=== PATIENT | male | born 1995 | race Caucasian/White ===

== ENCOUNTER → 2018-05-23 | Outpatient (CLI) | payer OTHER ==
--- NOTE | 2018-05-23 15:21 | CT ---
EXAMINATION TYPE: CT ankle RT wo con DATE OF EXAM: 05/23/2018 COMPARISON: NONE HISTORY: 23-year-old male injury right ankle, crushed with log TECHNIQUE: Contiguous axial scanning of the right ankle without IV contrast. Coronal and sagittal rec onstructions performed. 3-D reconstructions generated on a dedicated independent workstation. CT DLP: 238 mGycm Automated exposure control for dose reduction was used. FINDINGS: There is a comminuted oblique fracture through the base of the medial malleolus with mild displacemen t of fracture fragments. Associated soft tissue swelling and hematoma. Fracture fragments measure up to 1.7 and 1.1 cm. The posterior tibial tendon is displaced anteriorly and entrapped between the 2 comminuted fracture f ragments, refer to axial image 51 and sagittal image 24 as well as coronal image 15. Medial sided sof t tissue swelling. Additional curvilinear bone fragment measuring 9 x 6 mm just adjacent to the lateral talar process at the expected ATFL attachment site. Tiny density measuring 3 mm along the dorsal talar head/neck could represent a tiny capsular avulsion fracture. No intra-articular loose bodies are seen. Talar dome appears intact. Subtalar joint is aligned. Prese rved fat signal within the sinus Tarsi. Achilles tendon intact. IMPRESSION: 1. COMMINUTED FRACTURE INVOLVING THE MEDIAL MALLEOLUS WITH FRAGMENTS MEASURING 1.7 AND 1.1 CM. 2. OF NOTE, THE POSTERIOR TIBIAL TENDON IS DISPLACED ANTERIORLY AND ENTRAPPED BETWEEN THE 2 COMMINUT ED FRAGMENTS. 3. 9 X 6 MM AVULSION FRACTURE FRAGMENT AT THE TALAR ATTACHMENT OF THE ATFL. 4. TINY 3 MM DENSITY ALONG THE DORSAL TALAR HEAD/NECK COULD REPRESENT A TINY CAPSULAR AVULSION FRACTU RE.
== END | disposition home or self-care (01) ==
LOC: RADCTMAIN 14:35
PROVIDERS: ATTEND Orthopaedic Surgery
DX: S82.51XD Displaced fracture of medial malleolus of right tibia, subsequent encounter for closed fracture with routine healing (principal)

== ENCOUNTER 2018-05-30 08:55 | Day surgery (SDC) | payer OTHER ==
[2018-05-27 09:03] VITALS: BMI 20.9
[~2018-05-30 08:55] MED LIST: DEXAMETHASONE SOD PHOSPHATE 10 MG/ML 1 ML VIAL IV ONE; LACTATED RINGERS 1,000 ML IV SCH; MIDAZOLAM 2 MG/2 ML VIAL IV PRN; ONDANSETRON 4 MG/2 ML VIAL IVP ONE; SCOPOLAMINE 1.5MG/72HR PATCH TRANSDERM ONE; ceFAZolin IN SWFI 2 GM/20 ML SYRINGE IVP ONE; fentaNYL (PF) 50 MCG/ML 2 ML AMP IV PRN
[2018-05-30] MEDS ORDERED: LIDOCAINE 1% 20 ML VIAL (10MG/ML) FOR IV START INTRADERMA ONE (09:19)
[2018-05-30] MEDS ORDERED: fentaNYL (PF) 50 MCG/ML 2 ML AMP ONE (10:21)
[2018-05-30] MEDS ORDERED: MIDAZOLAM 2 MG/2 ML VIAL ONE (10:21)
[2018-05-30] MEDS ORDERED: GLYCOPYRROLATE 0.2 MG/ML 2 ML VIAL ONE (10:21)
[2018-05-30] MEDS ORDERED: NEOSTIGMINE 1 MG/ML 10 ML VIAL ONE (10:21)
[2018-05-30] MEDS ORDERED: PROPOFOL 10 MG/ML 20 ML VIAL IV ONE (10:21)
[2018-05-30] MEDS ORDERED: SUCCINYLCHOLINE CHLORIDE 100 MG/5 ML SYR IV ONE (10:21)
[2018-05-30] MEDS ORDERED: ROCURONIUM BROMIDE 10 MG/ML 10 ML VIAL IV ONE (10:21)
--- NOTE | 2018-05-30 11:51 | P.ONQ ---
Anesthesiology Proc Note - PNB - Peripheral Nerve Block Performed Left Adductor Canal Single Time Out Performed: Yes (0935) Procedure Start Time: 09:35 Procedure Stop Time: :40 Indication: Acute Post-Operative Pain, Dx/Pain Location (Left ankle pain), Requested by physician Sedation Type: Sedate with meaningful contact maintained Preparation: Sterile Prep Position: Supine Catheter: None Needle Types: On-Q Needle Size: 50mm (2") Needle Gauge: 21 Technique: Ultrasound Injectate: Other (see comment) (7.5ml 0.5% Ropivacaine + 7.5ml 2% Lidocaine w/ 1 :200,000) Blood Aspirated: No Pain Paresthesia on Injection Noted: No Resistance on Injection: Normal Events: Uneventful and Well Tolerated
--- NOTE | 2018-05-30 11:54 | P.ONQ ---
Anesthesiology Proc Note - PNB - Peripheral Nerve Block Performed Left Popliteal Time Out Performed: Yes (0935) Procedure Start Time: 09:35 Procedure Stop Time: 09:40 Indication: Acute Post-Operative Pain, Dx/Pain Location (Left Ankle Pain), Requested by physician Sedation Type: Sedate with meaningful contact maintained Preparation: Sterile Prep Position: Supine Catheter: None Needle Types: On-Q Needle Size: 50mm (2") Needle Gauge: 21 Technique: Ultrasound Injectate: 0.5% Ropivacaine (see comment for volume) (10ml 0.5% Ropivcaine + 5ml 2% Lidocaine w/ 1:200,000) Blood Aspirated: No Pain Paresthesia on Injection Noted: No Resistance on Injection: Normal Events: Uneventful and Well Tolerated
[2018-05-30] MEDS ORDERED: LACTATED RINGERS 1,000 ML IV ONE (12:07)
--- NOTE | 2018-05-30 12:12 | P.OP ---
Date of Procedure: 05/30/18 Preoperative Diagnosis: 1. Right medial malleolus fracture 2. Right posterior tibial tendon dislocation Postoperative Diagnosis: Same Procedure(s) Performed: 1. Open reduction and internal fixation of right medial malleolus fracture 2. Open reduction of posterior tibial tendon dislocation and repair of retinaculum 3. Application of short-leg splint by physician, right leg Anesthesia: LATIA Surgeon: Sergei Birch Creative Engagement Director #1: Denis Wayne Estimated Blood Loss (ml): 10 IV fluids (ml): 600 Pathology: none sent Condition: stable Disposition: PACU Indications for Procedure: The patient is a previously healthy 23-year-old male who sustained an isolated injury to his right ankle at the beginning of April. He was seen in the ER and referred to our office. The patient did not present for over 2 weeks after his injury. X-rays showed a displaced medial malleolus fracture. A computed tomography scan was obtained to better identify the fracture fragments. The computed tomography scan code 2 large and completely displaced fragments off of the medial malleolus. The posterior tibial tendon also appeared to be interposed between the fragments. I recommended an open reduction and internal fixation and exploration of the posterior tibial tendon. We discussed the potential risks and complications of surgery including but not limited to risk of anesthesia, risk of superficial infection, risk of deep infection, risk of delayed wound healing, risk of superficial wound necrosis, risk of Depo necrosis , risk of fracture nonunion, risk of fracture malunion, risk of malreduction, risk of post traumatic arthritis, risk of recurrent posterior tibial tendon subluxation, risk of damage to local blood vessels or nerves, risk of chronic pain, risk of chronic swelling, risk of inability to regain preinjury level of function, risk of generalized dissatisfaction with surgery, risk of DVT, risk of PE, risk of other medical complications, possible loss of life or limb. He voiced his understanding of these potential complications. Description of Procedure: The patient was identified in preoperative holding and the correct right leg was marked with my initials. I reviewed the consent form with the patient and all of his questions were answered. The patient had a popliteal and saphenous nerve block placed by anesthesia. He was then brought back to the operating room. He was positioned on the OR table and a general anesthetic and preoperative antibiotics were administered. A bump was placed under the right buttock. A ramp was placed on the right leg. A tourniquet was applied and the proximal aspect of the right thigh. All bony prominences were well-padded. The right leg was then prepped and draped in the standard sterile fashion. Prior to starting surgery timeout was performed identifying the correct patient , operative extremity, and procedure. The leg was then elevated, exsanguinated with an Esmarch bandage, and the tourniquet was inflated to 250 mmHg. Next A longitudinal incision was marked out over the medial malleolus. Skin incision was made a scalpel. Dissection was carried down carefully through subcu tissue with tenotomy scissors. The fracture fragments were identified and were scarred in with early callus and scar tissue. The posterior tibial tendon sheath was ruptured and the posterior tibial tendon was subluxed and interposed between the 2 fragments. Both fragments were debrided and then gently keyed into place. A [id number] reduction clamp was used to hold the fracture reduced. Cannulated partially threaded 3.0 mm screws were placed into the larger fragment and rating excellent compression. 2 screws were placed. The smaller fragment was held in place with a cannulated 20 screw. Fluoroscopy was used verify position of the hardware. A 3.0 mm suture tack was then placed anterior to the posterior tibial tendon sheath and the sheath was repaired back down to bone. Final fluoroscopic images were taken. The wound was copiously irrigated and closed in layers. A well-padded bulky Diaz splint was placed after sterile dressing including Betadine soaked Adaptic and 4 x 4's were placed on the incision. The patient was awoken from his anesthetic transferred from the OR table to the [facility] and brought to PACU without the procedure well. Denis Wayne PAC was present for patient positioning, surgical exposure, retraction, placement of hardware, closure of wound, and application of splint. Plan: The patient is going to be strictly nonweightbearing on his right leg in a splint at all times. He'll follow-up in 2 weeks for splint removal and x- rays out of his splint.
[2018-05-30] MEDS ORDERED: HYDROmorphone 0.5 MG/0.5 ML SYRINGE IVP PRN ×2 (12:13)
[2018-05-30] MEDS ORDERED: ONDANSETRON 4 MG/2 ML VIAL IVP PRN (12:13)
[2018-05-30] MEDS ORDERED: HYDROcodone/APAP 5-325MG 1 EACH TAB PO PRN ×2 (12:13)
[2018-05-30] MEDS ORDERED: LACTATED RINGERS 1,000 ML IV SCH (12:15)
[2018-05-30 12:36] VITALS: RESP 18; TEMP 96.8
--- NOTE | 2018-05-30 13:21 | FL ---
EXAMINATION TYPE: FL guidance operating room DATE OF EXAM: 05/30/2018 HISTORY: Flouroscopy time 31 seconds of fluoroscopy provided. IMPRESSION: 1. Fluoroscopy time.
--- NOTE | 2018-05-30 13:21 | XR ---
EXAMINATION TYPE: XR ankle limited RT DATE OF EXAM: 05/30/2018 COMPARISON: NONE TECHNIQUE: Two views submitted HISTORY: Post op FINDINGS: There is postsurgical change in near anatomic alignment. There is soft tissue edema and emphysema. IMPRESSION: 1. Postoperative change. Appears in near-anatomic alignment
[2018-05-30 13:41] VITALS: BP 111/73; PULSE 65
== END 2018-05-30 14:27 | disposition home or self-care (01) ==
LOC: OR 08:55
PROVIDERS: ATTEND Orthopaedic Surgery
DX: S82.51XA Displaced fracture of medial malleolus of right tibia, initial encounter for closed fracture (principal); S96.811A Strain of other specified muscles and tendons at ankle and foot level, right foot, initial encounter; X58.XXXA Exposure to other specified factors, initial encounter
CPT/HCPCS: 73600; 27766; 27658; 64450; 64447; J2250; J1100; J2710; J2405; J3010; J0330; J2704; J0690

== ENCOUNTER 2020-04-28 18:17 | Emergency (ER) | payer OTHER ==
[2020-04-28 18:29] VITALS: RESP 16
[2020-04-28] MEDS ORDERED: SODIUM CHLORIDE 0.9% 1,000 ML IV STA (18:34)
[2020-04-28] MEDS ORDERED: ONDANSETRON 4 MG/2 ML VIAL IVP STA (18:34)
[2020-04-28] MEDS ORDERED: PANTOPRAZOLE 40 MG/10 ML VIAL IVP STA (18:34)
--- NOTE | 2020-04-28 18:46 | ED ---
Abdominal Pain HPI - General Source: patient Mode of arrival: ambulatory Limitations: no limitations <Chucho Flowers - Last Filed: 04/28/20 18:44> <Wilda Muro - Last Filed: 04/30/20 23:57> - General Chief Complaint: Abdominal Pain Stated Complaint: Abd Pain, Diarrhea Time Seen by Provider: 04/28/20 18:32 - History of Present Illness Initial Comments: Patient is a 24-year-old male presenting to the emergency department with a chief complaint of diarrhea 2 days. Patient reports he was on a boat 2 days ag o and drank from [facility]. afterwards he developed nonbloody diarrhea, however this morning is noticed bloody diarrhea. Patient has any abdominal discomfort nausea or vomiting. Denies any night sweats fevers or chills. Denies any testicular swelling or discomfort. Denies any penile discharge. (Chucho Flowers) - Related Data Home Medications Medication Instructions Recorded Confirmed Ibuprofen [Motrin Ib] 800 mg PO BID PRN 05/27/18 05/30/18 Previous Rx's Medication Instructions Recorded Aspirin 325 mg PO BID #60 tab 05/30/18 HYDROcodone/APAP 7.5-325MG [[place] 1 - 2 tab PO Q6HR PRN #60 tab 05/30/18 7.5-325] Allergies Allergy/AdvReac Type Severity Reaction Status Date / Time No Known Allergies Allergy Verified 04/28/20 18:30 Review of Systems ROS Other: All systems not noted in ROS Statement are negative. <Chucho Flowers - Last Filed: 04/28/20 18:44> ROS Other: All systems not noted in ROS Statement are negative. <Wilda Muro - Last Filed: 04/30/20 23:57> ROS Statement: Those systems with pertinent positive or pertinent negative responses have been documented in the HPI. Past Medical History Past Medical History: Asthma Additional Past Medical History / Comment(s): FX RIGHT ANKLE- WEARING BOOT AND USING CRUTCHES., ? ASTHMA AT 18 YRS OLD- STATES SOB WITH EXERCISE. History of Any Multi-Drug Resistant Organisms: None Reported Past Surgical History: No Surgical Hx Reported, Orthopedic Surgery Additional Past Surgical History / Comment(s): ankle Additional Past Anesthesia/Blood Transfusion Reaction / Comment(s): PATIENT HAS NEVER RECEIVED ANESTHESIA Past Psychological History: No Psychological Hx Reported Smoking Status: Current every day smoker Past Alcohol Use History: None Reported Past Drug Use History: None Reported - Past Family History Mother Family Medical History: Cancer Additional Family Medical History / Comment(s): FROM LUNG CANCER Father Family Medical History: Deep Vein Thrombosis (DVT) <KimalexandriaChucho - Last Filed: 04/28/20 18:44> General Exam Limitations: no limitations General appearance: alert, in no apparent distress Head exam: Present: atraumatic, normocephalic, normal inspection Eye exam: Present: normal appearance, PERRL, EOMI Pupils: Present: normal accommodation ENT exam: Present: normal exam, normal oropharynx, mucous membranes dry Neck exam: Present: normal inspection, full ROM Respiratory exam: Present: normal lung sounds bilaterally Cardiovascular Exam: Present: regular rate, normal rhythm, normal heart sounds GI/Abdominal exam: Present: soft. Absent: distended, tenderness, guarding, rebound Extremities exam: Present: normal inspection, full ROM Back exam: Present: normal inspection, full ROM Neurological exam: Present: alert, oriented X3 Psychiatric exam: Present: normal affect, normal mood Skin exam: Present: warm, dry, intact, normal color <KimauratobiasChucho - Last Filed: 04/28/20 18:44> Course Vital Signs 04/28/20 04/28/20 04/28/20 18:27 20:00 21:00 Temperature 97.4 F L Pulse Rate 104 H 16 L 16 L Respiratory 16 Rate Blood Pressure 102/68 O2 Sat by Pulse 100 Oximetry 04/28/20 21:49 Temperature 102.4 F H Pulse Rate 96 Respiratory 16 Rate Blood Pressure 113/69 O2 Sat by Pulse 100 Oximetry Medical Decision Making - Lab Data Result diagrams: 04/28/20 19:23 04/28/20 19:23 <Wilda Muro - Last Filed: 04/30/20 23:57> - Medical Decision Making The patient was evaluated by myself. I did review his labs. He is able to provide a stool sample. I did order stool cultures. Patient was given fluids. He is tolerating fluids by mouth. Patient feels comfortable for discharge at this time. Patient was afebrile therefore was discharged to follow-up with his primary care physician. I also provided him with information for GI. Discharge vitals were obtained and the patient spike a fever. Patient states he feels well at this time and does still continue to comfortable going home. I did give him Motrin for his fever. Because of this I provided him with a dose of azithromycin. I also provided him with a prescription for three-day course of the antibiotic. Stool cultures are still pending and he was informed he would be called if any of them keep positive. The patient is any new or worsening symptoms she should return to the emergency room. Patient was in agreement with this treatment plan he is discharged home in stable condition (Wilda Muro) - Lab Data Lab Results 04/28/20 04/28/20 04/28/20 Range/Units 19:23 19:23 20:59 WBC 7.8 (3.8-10.6) k/uL RBC 5.24 (4.30-5.90) m/uL Hgb 17.2 (13.0-17.5) gm/dL Hct 49.7 (39.0-53.0) % MCV 94.8 (80.0-100.0) fL MCH 32.8 (25.0-35.0) pg MCHC 34.6 (31.0-37.0) g/dL RDW 11.7 (11.5-15.5) % Plt Count 161 (150-450) k/uL Neutrophils % 87 % Lymphocytes % 7 % Monocytes % 5 % Eosinophils % 1 % Basophils % 0 % Neutrophils # 6.7 (1.3-7.7) k/uL Lymphocytes # 0.5 L (1.0-4.8) k/uL Monocytes # 0.4 (0-1.0) k/uL Eosinophils # 0.1 (0-0.7) k/uL Basophils # 0.0 (0-0.2) k/uL Sodium 138 (137-145) mmol/L Potassium 4.7 (3.5-5.1) mmol/L Chloride 101 (98-107) mmol/L Carbon Dioxide 26 (22-30) mmol/L Anion Gap 11 mmol/L BUN 13 (9-20) mg/dL Creatinine 1.04 (0.66-1.25) mg/dL Est GFR (CKD-EPI)AfAm >90 (>60 ml/min/1.73 sqM) Est GFR (CKD-EPI)NonAf >90 (>60 ml/min/1.73 sqM) Glucose 122 H (74-99) mg/dL Calcium 9.4 (8.4-10.2) mg/dL Total Bilirubin 0.6 (0.2-1.3) mg/dL AST 31 (17-59) U/L ALT 20 (4-49) U/L Alkaline Phosphatase 68 (38-126) U/L Total Protein 7.8 (6.3-8.2) g/dL Albumin 4.6 (3.5-5.0) g/dL Lipase 29 (23-300) U/L Stool Lactoferrin POSITIVE H (NEGATIVE) Stl Cryptosporidium Ag (Negative) Stool Giardia Source Stl Giardia Antigen (Negative) 04/28/20 Range/Units 20:59 WBC (3.8-10.6) k/uL RBC (4.30-5.90) m/uL Hgb (13.0-17.5) gm/dL Hct (39.0-53.0) % MCV (80.0-100.0) fL MCH (25.0-35.0) pg MCHC (31.0-37.0) g/dL RDW (11.5-15.5) % Plt Count (150-450) k/uL Neutrophils % % Lymphocytes % % Monocytes % % Eosinophils % % Basophils % % Neutrophils # (1.3-7.7) k/uL Lymphocytes # (1.0-4.8) k/uL Monocytes # (0-1.0) k/uL Eosinophils # (0-0.7) k/uL Basophils # (0-0.2) k/uL Sodium (137-145) mmol/L Potassium (3.5-5.1) mmol/L Chloride (98-107) mmol/L Carbon Dioxide (22-30) mmol/L Anion Gap mmol/L BUN (9-20) mg/dL Creatinine (0.66-1.25) mg/dL Est GFR (CKD-EPI)AfAm (>60 ml/min/1.73 sqM) Est GFR (CKD-EPI)NonAf (>60 ml/min/1.73 sqM) Glucose (74-99) mg/dL Calcium (8.4-10.2) mg/dL Total Bilirubin (0.2-1.3) mg/dL AST (17-59) U/L ALT (4-49) U/L Alkaline Phosphatase (38-126) U/L Total Protein (6.3-8.2) g/dL Albumin (3.5-5.0) g/dL Lipase (23-300) U/L Stool Lactoferrin (NEGATIVE) Stl Cryptosporidium Ag Negative (Negative) Stool Giardia Source Stool Stl Giardia Antigen Negative (Negative) Disposition <Chucho Flowers - Last Filed: 04/28/20 18:44> Is patient prescribed a controlled substance at d/c from ED?: No Time of Disposition: 21:07 <Wilda Muro - Last Filed: 04/30/20 23:57> Clinical Impression: Diarrhea Disposition: HOME SELF-CARE Condition: Stable Instructions (If sedation given, give patient instructions): Acute Diarrhea (ED) Additional Instructions: Increase fluid intake. Please follow up with primary care doctor in 2-4 days. Return to the emergency room for any new or worsening symptoms. We will call you if any of your laboratory results come back positive Referrals: None,Stated [Primary Care Provider] - 1-2 days Anders Vigil MD [STAFF PHYSICIAN] - 1-2 days
[2020-04-28 19:41] LABS: Basophils % (A) 0 %; Eosinophils # (A) 0.1 k/uL (0-0.7); Eosinophils % (A) 1 %; HCT 49.7 % (39.0-53.0); HGB 17.2 gm/dL (13.0-17.5); Lymphocytes # (A) 0.5 k/uL (1.0-4.8); Lymphocytes % (A) 7 %; MCH 32.8 pg (25.0-35.0); MCHC 34.6 g/dL (31.0-37.0); MCV 94.8 fL (80.0-100.0); Mean Platelet Volume 7.6; Monocytes # (A) 0.4 k/uL (0-1.0); Monocytes % (A) 5 %; Neutrophils # (A) 6.7 k/uL (1.3-7.7); Neutrophils % (A) 87 %; Platelet Count 161 k/uL (150-450); RBC 5.24 m/uL (4.30-5.90); RDW 11.7 % (11.5-15.5); WBC 7.8 k/uL (3.8-10.6)
[2020-04-28 19:57] LABS: ALT 20 U/L (4-49); AST 31 U/L (17-59); African American GFR (CKD) >90 (>60 ml/min/1.73 sqM); Albumin 4.6 g/dL (3.5-5.0); Alkaline Phosphatase 68 U/L (38-126); Anion Gap 11 mmol/L; Blood Urea Nitrogen 13 mg/dL (9-20); Calcium 9.4 mg/dL (8.4-10.2); Carbon Dioxide 26 mmol/L (22-30); Chloride 101 mmol/L (98-107); Glucose 122 mg/dL (74-99); Non-African American GFR(CKD) >90 (>60 ml/min/1.73 sqM); Potassium 4.7 mmol/L (3.5-5.1); Sodium 138 mmol/L (137-145); Total Bilirubin 0.6 mg/dL (0.2-1.3); Total Protein 7.8 g/dL (6.3-8.2)
[2020-04-28] MEDS: DICYCLOMINE 10 MG/ML 2 ML AMP IM STA ×2 (20:48→20:54)
[2020-04-28] MEDS ORDERED: DICYCLOMINE 10 MG/ML 2 ML AMP IM STA (20:54)
[2020-04-28 22:05] VITALS: BP 113/69; PULSE 96; TEMP 102.4
[2020-04-28] MEDS ORDERED: IBUPROFEN 600 MG TAB PO STA (22:07)
[2020-04-28] MEDS ORDERED: AZITHROMYCIN 500 MG TAB PO STA (22:07)
== END 2020-04-28 22:23 | disposition home or self-care (01) ==
LOC: EC 18:17
DX: R19.7 Diarrhea, unspecified (principal); R50.9 Fever, unspecified; R11.2 Nausea with vomiting, unspecified; R10.9 Unspecified abdominal pain; F17.200 Nicotine dependence, unspecified, uncomplicated
CPT/HCPCS: 36415; 80053; 83690; 85025; 87045; 87329; 87328; 83630; 87046; 96372; 96374; 96375; 96361; 99284; J0500; J2405; C9113; 87077; 87186

== ENCOUNTER 2021-01-23 23:21 | Emergency (ER) | payer OTHER ==
--- NOTE | 2021-01-23 23:35 | ED ---
Upper Extremity HPI - General Chief Complaint: Extremity Injury, Upper Stated Complaint: Right hand injury Time Seen by Provider: 01/23/21 23:34 Source: patient, RN notes reviewed, old records reviewed Mode of arrival: ambulatory Limitations: no limitations - History of Present Illness Initial Comments: 25male who did punch a wall today, he did hit the wall with both hands was sustained painful injury to his left hand. Patient has deformity and swelling to that hand. No other complaints no other injuries not homicidal or suicidal and denies drug or alcohol abuse denying MD Complaint: Injury to:: left -: hour(s) Other Extremity Injury: Hand: Left Other Injuries: none Handedness: right Place: home Severity scale (1-10): 10 Improves With: none Worsens With: movement of extremity Context: direct blow Associated Symptoms: denies other symptoms - Related Data Home Medications Medication Instructions Recorded Confirmed Ibuprofen [Motrin Ib] 800 mg PO BID PRN 05/27/18 05/30/18 Previous Rx's Medication Instructions Recorded Aspirin 325 mg PO BID #60 tab 05/30/18 HYDROcodone/APAP 7.5-325MG [[place] 1 - 2 tab PO Q6HR PRN #60 tab 05/30/18 7.5-325] Allergies Allergy/AdvReac Type Severity Reaction Status Date / Time No Known Allergies Allergy Verified 04/28/20 18:30 Review of Systems ROS Statement: Those systems with pertinent positive or pertinent negative responses have been documented in the HPI. ROS Other: All systems not noted in ROS Statement are negative. Past Medical History Past Medical History: Asthma Additional Past Medical History / Comment(s): FX RIGHT ANKLE- WEARING BOOT AND USING CRUTCHES., ? ASTHMA AT 18 YRS OLD- STATES SOB WITH EXERCISE. History of Any Multi-Drug Resistant Organisms: None Reported Past Surgical History: No Surgical Hx Reported, Orthopedic Surgery Additional Past Surgical History / Comment(s): ankle Additional Past Anesthesia/Blood Transfusion Reaction / Comment(s): PATIENT HAS NEVER RECEIVED ANESTHESIA Past Psychological History: No Psychological Hx Reported Past Alcohol Use History: None Reported Past Drug Use History: None Reported - Past Family History Mother Family Medical History: Cancer Additional Family Medical History / Comment(s): FROM LUNG CANCER Father Family Medical History: Deep Vein Thrombosis (DVT) General Exam Limitations: no limitations General appearance: alert, in no apparent distress Head exam: Present: atraumatic, normocephalic, normal inspection Eye exam: Present: normal appearance, PERRL, EOMI. Absent: scleral icterus, conjunctival injection, periorbital swelling ENT exam: Present: normal exam, mucous membranes moist Neck exam: Present: normal inspection. Absent: tenderness, meningismus, lymphadenopathy Respiratory exam: Present: normal lung sounds bilaterally. Absent: respiratory distress, wheezes, rales, rhonchi, stridor Cardiovascular Exam: Present: regular rate, normal rhythm, normal heart sounds. Absent: systolic murmur, diastolic murmur, rubs, gallop, clicks GI/Abdominal exam: Present: soft, normal bowel sounds. Absent: distended, tenderness, guarding, rebound, rigid Extremities exam: Present: normal inspection, full ROM, normal capillary refill, other (Left hand does have significant swelling to this metatarsal). Absent: tenderness, pedal edema, joint swelling, calf tenderness Back exam: Present: normal inspection Neurological exam: Present: alert, oriented X3, CN II-XII intact Psychiatric exam: Present: normal affect, normal mood Skin exam: Present: warm, dry, intact, normal color. Absent: rash Course Vital Signs 01/23/21 01/24/21 23:27 00:49 Temperature 98 F 98.2 F Pulse Rate 77 99 Respiratory 18 20 Rate Blood Pressure 122/70 103/61 O2 Sat by Pulse 98 99 Oximetry - Reevaluation(s) Reevaluation #1: Medical record is reviewed Patient has improved symptoms here in the ER Patient feels better Patient family informed results questions are answered Patient feels good for discharge Procedures - Orthopedic Splinting/Casting Injury #1 Side: left Upper Extremity Injury Location: wrist, hand Upper Extremity Immobilizer: ulnar gutter Medical Decision Making - Medical Decision Making 22 female with boxer's break of left hand. Injury splinted and patient can be discharged home - Radiology Data Radiology results: report reviewed (X-ray left hand does show boxer's fracture), image reviewed Disposition Clinical Impression: Boxers fracture, Left hand fracture Disposition: HOME SELF-CARE Condition: Good Instructions (If sedation given, give patient instructions): Boxer Fracture (ED) Is patient prescribed a controlled substance at d/c from ED?: No Referrals: Alexandro Frank MD [STAFF PHYSICIAN] - 1-2 days
--- NOTE | 2021-01-24 00:08 | XR ---
EXAMINATION TYPE: XR hand complete LT DATE OF EXAM: 01/24/2021 COMPARISON: NONE HISTORY: Pain. TECHNIQUE: 3 views FINDINGS: There is acute mildly impacted transverse fracture of the neck of the fifth metacarpal head . There is slight posterior angulation at the fracture site. There is no dislocation. Carpal bones ar e intact. IMPRESSION: Acute boxer fracture distal fifth metacarpal.
[2021-01-24 00:52] VITALS: BP 103/61; PULSE 99; RESP 20; TEMP 98.2
== END 2021-01-24 00:49 | disposition home or self-care (01) ==
LOC: EC 23:21
DX: S62.92XA Unspecified fracture of left hand, initial encounter for closed fracture (principal); W22.01XA Walked into wall, initial encounter; Y92.009 Unspecified place in unspecified non-institutional (private) residence as the place of occurrence of the external cause
CPT/HCPCS: 29125; 99284

== ENCOUNTER 2021-12-12 20:29 | Emergency (ER) | payer OTHER ==
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
[2021-12-12 21:34] VITALS: BP 112/81; PULSE 63; RESP 18; TEMP 98.4
== END 2021-12-12 21:33 | disposition home or self-care (01) ==
LOC: EC 20:29
DX: R07.9 Chest pain, unspecified (principal); J45.909 Unspecified asthma, uncomplicated; F17.200 Nicotine dependence, unspecified, uncomplicated
CPT/HCPCS: 93005; 99284

== ENCOUNTER 2024-06-01 22:41 | Emergency (ER) | payer OTHER ==
[2024-06-01 22:47] VITALS: RESP 18
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
[2024-06-02] MEDS: BACITRACIN ZINC 500 UNIT/GM OINT 28.4 GM TUBE TOPICAL ONE (01:04)
[2024-06-02 01:07] VITALS: BP 121/73; PULSE 68; TEMP 98.2
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
== END 2024-06-02 01:07 | disposition home or self-care (01) ==
LOC: EC 22:41
DX: S89.91XA Unspecified injury of right lower leg, initial encounter (principal); F17.290 Nicotine dependence, other tobacco product, uncomplicated; W22.8XXA Striking against or struck by other objects, initial encounter
CPT/HCPCS: 99283